=== PATIENT | male | born 1985 | race Two or more races ===

== ENCOUNTER 2024-09-26 14:48 | Emergency (ER) | payer OTHER ==
[~2024-09-26] VITALS: Ht 167.6 cm; Wt 83.9 kg
[2024-09-26 14:56] VITALS: TEMP 98.2
[2024-09-26 16:26] VITALS: BP 121/74; O2SAT 97
== END 2024-09-26 16:26 | disposition home or self-care (01) ==
LOC: ER 14:55
DX: M25.511 Pain in right shoulder (principal); I10 Essential (primary) hypertension; Z88.0 Allergy status to penicillin; W20.8XXA Other cause of strike by thrown, projected or falling object, initial encounter; Y93.89 Activity, other specified; Y92.89 Other specified places as the place of occurrence of the external cause; Y99.0 Civilian activity done for income or pay
CPT/HCPCS: 73030-TC